=== PATIENT | male | born 1940 | race Caucasian/White ===

== ENCOUNTER → 2017-09-07 | Outpatient (CLI) | payer OTHER ==
[~2017-09-07] MED LIST: ALBU3IS INH; ALBU90OI INH; ASPI81EC PO; ATOR20 PO; AZIT500 PO; HYDACE5 PO; IBUP600 PO; IPRAOI INH; LISI5 PO; NAPR500 PO; OMEP20ER PO; OXYACE5T PO; OXYGEN; PRED20 PO; Prednisone20 MG PO; ROSU5 PO; Zithromax250 MG PO
[2017-09-07 13:03] LABS: Stool Occult Blood Guaiac 1 Neg (Neg); Stool Occult Blood Guaiac 2 Neg (Neg)
[2017-09-07 13:04] LABS: Stool Occult Blood Guaiac 3 Neg (Neg)
== END | disposition home or self-care (01) ==
LOC: LAB SHORT 09:00 → LAB 09:00 → LAB FUT 06-05 16:35
PROVIDERS: Nurse Practitioner Family
DX: Z12.11 Encounter for screening for malignant neoplasm of colon (principal); Z12.5 Encounter for screening for malignant neoplasm of prostate; I10 Essential (primary) hypertension; E78.5 Hyperlipidemia, unspecified
CPT/HCPCS: 82270

== ENCOUNTER → 2018-06-20 | Outpatient (CLI) | payer MEDICARE | END | disposition home or self-care (01) | LOC: PLD 10:05 → LAB SHORT 10:05 | DX: C44.519 Basal cell carcinoma of skin of other part of trunk (principal) | CPT/HCPCS: 88305 ==

== ENCOUNTER → 2020-11-24 | Outpatient (CLI) | payer MEDICARE | END | disposition home or self-care (01) | LOC: LAB SHORT 16:37 | DX: N39.0 Urinary tract infection, site not specified (principal) | CPT/HCPCS: 87077; 87086; 87186 ==

== ENCOUNTER 2022-04-12 07:42 | Inpatient (IN) | payer OTHER ==
[~2022-04-12] VITALS: Ht 180.3 cm; Wt 75.0 kg
[~2022-04-12 07:42] MED LIST changes: +HYDROCODONE-AC1 EA10 PO
[2022-04-12 08:42] LABS: BASOPHILS ABSOLUTE AUTO 0.01 K/mm3 (0.00-0.23); BASOPHILS PERCENT AUTO 0 % (0-2); EOSINOPHILS PERCENT AUTO 0 % (0-6); Hematocrit 41.3 % (37.0-53.0); Hemoglobin 14.3 g/dL (13.5-17.5); IMMATURE GRAN ABSOLUTE AUTO 0.02 K/mm3 (0.00-0.10); IMMATURE GRAN PERCENT AUTO 1 % (0-1); LYMPHOCYTES ABSOLUTE AUTO 0.59 K/mm3 (0.84-5.20); LYMPHOCYTES PERCENT AUTO 15 % (21-46); MONOCYTES ABSOLUTE AUTO 0.45 K/mm3 (0.16-1.47); MONOCYTES PERCENT AUTO 11 % (4-13); Mean Corpuscular HGB 32.5 pg (26.0-34.0); Mean Corpuscular HGB Conc 34.6 g/dL (31.5-36.5); Mean Corpuscular Volume 94 fL (80-100); Mean Platelet Volume 10.7 fL (9.1-12.4); NEUTROPHILS ABSOLUTE AUTO 2.93 K/mm3 (1.96-9.15); NEUTROPHILS PERCENT AUTO 73 % (41-73); Platelet Count 136 K/mm3 (150-400); RDW Standard Deviation 45.1 fL (35.1-46.3)
[2022-04-12 08:55] LABS: Albumin, Blood 2.9 g/dL (3.4-5.0); Albumin/Globulin Ratio 0.9 (0.8-1.8); Bilirubin, Total 0.5 mg/dL (0.1-1.0); Bun/Creatinine Ratio 23.5 (12.0-20.0); Creatinine, Blood 0.85 mg/dL (0.60-1.20); Globulin, Blood 3.3 g/dL (2.2-4.0); Potassium, Blood 4.2 mmol/L (3.5-5.5); Total Protein, Blood 6.2 g/dL (6.4-8.2)
[2022-04-12 09:22] LABS: Influenza A, PCR NEGATIVE (NEGATIVE); Influenza B, PCR NEGATIVE (NEGATIVE); Resp Syncytial Virus, PCR NEGATIVE (NEGATIVE)
[2022-04-12 09:28] LABS: SARS-Cov-2 (COVID-19) PCR, MMC POSITIVE (NEGATIVE)
--- NOTE | 2022-04-12 17:55 | NUR ---
Shift Summary New ED admit, received report from GENARO Abdullahi. Patient arrived to room by self, but shortly after, arrived too. A/Ox3, TYONEK. 4L O2. Patient reports increased weakness and stiff legs since COVID infection. 1p SBA with FWW and gaitbelt. Has poor safety awareness and definitely overestimates ability. SCD's in place. Bed alarm on. Continues to refuse remdesivir. Both and patient inquired about Ivermectin, informed to discuss with PCP/Hospitalist. Denies pain. Good appetite.
--- NOTE | 2022-04-12 18:45 | NUR ---
Muscle spasms Patient c/o muscle spasms after SCD's placed. T.O. received from Dr. Morales for 5mg flexeril PO q8h prn.
--- NOTE | 2022-04-13 04:12 | NUR ---
SHIFT SUMMARY PT C/O LEG SPASMS, ADMINISTERED PRN FLEXRIL WITH MINIMAL EFFECT. PT UP IN CHAIR WITH X1 ASSIST FWW D/T LEG SPASMS. PT STATES HE TAKES NORCO AT HOME, NEW ORDER FOR X1 NORCO TAB AT BEDTIME. ADMINISTERED WITH GOOD EFFECT. PT ON/OFF MENTATION, MORE CONFUSED THE NIGHT WENT ON. IMPULSIVE, NOT USING ALL LIGHT, CAMERA AND BED ALARM ON PT. NOTED PT TO BE URINATING FREQUENTLY WITH ONLY 50-100ML OUT. BLADDER SCAN SHOWED 596ML. STRAIGHT CATHED X1 PER PROTOCOL. AFTERWARDS PT URINATING WITHOUT ISSUES, VOIDING 300-500ML AT ONCE. PT ON 5LO2, BECOMING SOB WITH ACTIVITY, STRONG COUGH. BED ALARM ON. WILL CONTINUE TO MONITOR.
[2022-04-13 05:49] LABS: BASOPHILS ABSOLUTE AUTO 0.01 K/mm3 (0.00-0.23); BASOPHILS PERCENT AUTO 0 % (0-2); EOSINOPHILS PERCENT AUTO 0 % (0-6); Hematocrit 41.6 % (37.0-53.0); Hemoglobin 14.4 g/dL (13.5-17.5); IMMATURE GRAN ABSOLUTE AUTO 0.02 K/mm3 (0.00-0.10); IMMATURE GRAN PERCENT AUTO 1 % (0-1); LYMPHOCYTES PERCENT AUTO 18 % (21-46); MONOCYTES ABSOLUTE AUTO 0.43 K/mm3 (0.16-1.47); MONOCYTES PERCENT AUTO 11 % (4-13); Mean Corpuscular HGB 31.8 pg (26.0-34.0); Mean Corpuscular HGB Conc 34.6 g/dL (31.5-36.5); Mean Corpuscular Volume 92 fL (80-100); Mean Platelet Volume 10.7 fL (9.1-12.4); NEUTROPHILS ABSOLUTE AUTO 2.76 K/mm3 (1.96-9.15); NEUTROPHILS PERCENT AUTO 70 % (41-73); Platelet Count 134 K/mm3 (150-400); RDW Coefficient Variation 12.6 % (11.7-14.2); Red Blood Cell Count 4.53 M/mm3 (4.30-5.90); White Blood Cell Count 3.92 K/mm3 (4.00-11.30)
[2022-04-13 06:18] LABS: Albumin, Blood 2.8 g/dL (3.4-5.0); Albumin/Globulin Ratio 0.8 (0.8-1.8); Bilirubin, Total 0.5 mg/dL (0.1-1.0); Bun/Creatinine Ratio 22.8 (12.0-20.0); Calcium, Blood 8.7 mg/dL (8.5-10.1); Creatinine, Blood 0.79 mg/dL (0.60-1.20); Globulin, Blood 3.4 g/dL (2.2-4.0); Potassium, Blood 4.1 mmol/L (3.5-5.5); Total Protein, Blood 6.2 g/dL (6.4-8.2)
[2022-04-13 10:58] LABS: Base Excess Venous 4.1 mmol/L; Bicarbonate Venous 27.5 mmol/L (24.0-30.0); PCO2 Venous 39.7 mmHg (38-42); pH Blood Venous 7.46 (7.34-7.37)
--- NOTE | 2022-04-13 12:18 | NUR ---
Pt arrived from medical floor in bed. Put on AirVo by RT Kourtney. Pt is mumbling, speech is coherent, but he does have some confusion and flight of ideas. Mumbling to himself at times. Vital signs are stable. Rhonda states that the speech and mentation changes are new from yesterday.
[2022-04-13 14:36] LABS: Source, Urine Foley catheter
[2022-04-13 14:39] LABS: Appearance, Urine Clear (Clear); Bilirubin, Urine Neg (Neg); Blood, Urine 1+ (Neg); Glucose Qualitative, Urine Neg (Neg); Ketones, Urine 1+ (Neg); Leukocyte Esterase, Urine Neg (Neg); Nitrite, Urine Neg (Neg); Protein, Urine Neg (Neg); Urobilinogen, Urine NORM (Normal)
[2022-04-13 14:44] LABS: Color, Urine Pale Yellow (P-Yellow)
[2022-04-13 14:46] LABS: Bacteria Few /hpf; Squamous Epithelial Cells Rare /hpf (Few); White Blood Cells, Urine 0-2 /hpf (0-5)
--- NOTE | 2022-04-13 21:16 | NUR ---
Patient continually pulling off Airvo & bipap, while patient is oriented he is very delirious and doesn't remember pulling off the O2. Resident contacted and order for one time medication.
--- NOTE | 2022-04-14 05:01 | NUR ---
Patient continued to get more delirious and not redirectable as night continued. Resident called multiple times receiving the following once time doses: 10mg Atarax, 12.5mg Seroquel, 5mg Zyprexa, and 0.5mg Haldol - to no effect. Patient set off bed alarm and was disconnected from O2, tele etc, walking to the door and pulling on his garzon catheter. Orders for soft wrist restraints given and attending contacted. Patient was medicated with 1mg Ativan and 10mg Zyprexa.
[2022-04-14 06:51] LABS: BASOPHILS PERCENT AUTO 0 % (0-2); EOSINOPHILS PERCENT AUTO 0 % (0-6); Hematocrit 45.9 % (37.0-53.0); Hemoglobin 15.8 g/dL (13.5-17.5); IMMATURE GRAN ABSOLUTE AUTO 0.03 K/mm3 (0.00-0.10); IMMATURE GRAN PERCENT AUTO 1 % (0-1); LYMPHOCYTES ABSOLUTE AUTO 0.69 K/mm3 (0.84-5.20); LYMPHOCYTES PERCENT AUTO 11 % (21-46); MONOCYTES ABSOLUTE AUTO 0.45 K/mm3 (0.16-1.47); MONOCYTES PERCENT AUTO 7 % (4-13); Mean Corpuscular HGB 31.7 pg (26.0-34.0); Mean Corpuscular HGB Conc 34.4 g/dL (31.5-36.5); Mean Corpuscular Volume 92 fL (80-100); Mean Platelet Volume 10.5 fL (9.1-12.4); NEUTROPHILS ABSOLUTE AUTO 5.06 K/mm3 (1.96-9.15); NEUTROPHILS PERCENT AUTO 81 % (41-73); Platelet Count 167 K/mm3 (150-400); RDW Coefficient Variation 12.6 % (11.7-14.2); Red Blood Cell Count 4.98 M/mm3 (4.30-5.90); White Blood Cell Count 6.23 K/mm3 (4.00-11.30)
[2022-04-14 07:19] LABS: Albumin, Blood 3.1 g/dL (3.4-5.0); Albumin/Globulin Ratio 0.8 (0.8-1.8); Bilirubin, Total 0.7 mg/dL (0.1-1.0); Bun/Creatinine Ratio 20.5 (12.0-20.0); Calcium, Blood 8.7 mg/dL (8.5-10.1); Creatinine, Blood 0.83 mg/dL (0.60-1.20); Globulin, Blood 3.8 g/dL (2.2-4.0); Potassium, Blood 4.4 mmol/L (3.5-5.5); Total Protein, Blood 6.9 g/dL (6.4-8.2)
--- NOTE | 2022-04-14 11:09 | NUR ---
Pt is sitting up, alert at times, mostly talking in incoherent speech to himself. He is pulling at the restraints, attempting to remove oxygen tubing from his nose when loosened. Repositioned in bed to sitting upright position. He did take some spoonfuls of water but clearly stated, "No more". Occasionally states something coherently, but he is obviously very confused, delerious. Occasional dry cough. Declined food/drink. Attempted oral care, but he angrily declined. Cole catheter is patent, draining yellow urine. Friend Ruben was here for a visit. Call to Domitila to give her an update. She states she is home with Dolly.
--- NOTE | 2022-04-14 13:09 | NUR ---
Pt sitting upright with HOB elevated as high as possible. Spo2 holding 90% on 50% FiO2. Opens eyes to conversation. Mostly incoherent mumbling, but did give some clear answers. Pt was offered water, coffee, and food. He was pulling on restraints, attempting to pull oxygen tubing and Cole tubing. He was redirected, but grabbed at staff PPE gown. Oral care started, initially pt was compliant, but pt bit down on yankaur and began to yell. Remains very confused and difficult to redirect. He took a drink of water, but then yelled that he did not want any. He then appeared to be exhausted, closed his eyes and no longer agitated/fighting/threatening. Repositioned on his right side, pillows to elevated heels off of the bed. Vital signs taken. HR 90, wandering atrial pacer; RR 32-36 spo2 90-93%; B/p 109/70 (82). T 99.5
--- NOTE | 2022-04-14 13:32 | NUR ---
Call to Dr. Ashley, updated on pt condition.
--- NOTE | 2022-04-14 15:38 | NUR ---
Sleeping, he has self repositioned from right side lying to his back. RR 28/min, spo2 96% on AirVo. Breathing with his mouth wide open, head on pillow, HOB elevated 25 degrees. Pt was repositioned to left side-lying. He is difficult to arouse, and agitated when receiving care.
--- NOTE | 2022-04-14 17:54 | NUR ---
Pt awake spontaneously, set off bed alarm as he was attempting OOB. Wrist restraints prevented his exit. He was confused, said he was trying to get out of here. Did not know where he was. Speech is mostly slurred, except when he is angry, which is quickly and often, and then his yelling is more articulate. Otherwise speech is incomprehensible most of the time. He is sitting up in bed now, eating dinner by himself. Appears to have a good appetite. Respirations are unlabored at rest, and spo2 92% while on the AirVo. Heart rate 95 bpm.
--- NOTE | 2022-04-14 19:00 | NUR ---
Sitting up in bed, watching TV. Wrist restraints in place as he cannot remember to leave his nasal cannula in place, and also attempts to remove the IV while he was eating dinner, supervised by 2 staff members.
--- NOTE | 2022-04-15 07:09 | NUR ---
DURING THE FIRST HALF OF THIS SHIFT, PATIENT WAS ALERT TO SELF AND FOLLOWING DIRECTIONS, PULLING AT RESTRAINTS AND ATTEMPTING TO PULL AT GONZALEZ CATHETER TUBING AND AIRVO CANNULA. PATIENT COMPLAINED OF PAIN TO HIS BACK, WHICH IS CHRONIC FOR HIM. PRN NORCO ADMINISTERED, NOTED THIS DOSE IS LESS THAN PATIENT'S HOME DOSE. PATIENT WAS SPEAKING WITH HIS ON THE PHONE AND I WAS ABLE TO CONFIRM THAT MR GLASS HAS BEEN TAKING NARCOTICS FOR GREATER THAN 20 YEARS DUE TO INJURIES SUSTAINED IN THE PAST. MRS. GLASS SAID THAT HE TAKES 1-2 VICODIN (5/500) FOUR TIMES PER DAY. I RECEIVED AUTHORIZATION TO ADMINISTER A SECOND DOSE OF THE NORCO (5/325) IN THE 0200 HOUR TO TREAT PATIENT COMPLAINT OF BACK PAIN. CONCERN FOR POSSIBLE WITHDRAWAL FROM NARCOTICS WITH THE DIFFERENCE IN HOSPITAL DOSE COMPARED TO HOME DOSE. WITH MY 0200 ASSESSMENT, MR. GLASS'S MENTATION HAD IMPROVED AND HIS SPEECH WAS MUCH CLEARER. HE ASKED TO HAVE THE RESTRAINTS REMOVED AND I EXPLAINED TO HIM WHY THEY WERE IN PLACE. HE SAID HE REMEMBERED THE RESTRAINTS BEING PLACED ON HIM AND THAT IT MADE HIM ANGRY. I EXPLAINED OUR CONCERNS FOR HIS RESPIRATORY STATUS AND HIS SAFETY, HE UNDERSTOOD. I SHARED THE CRITERIA FOR REMOVING THE RESTRAINTS AND THAT WE CAN LOOSEN THE RESTRAINTS IN 2 HOURS IF HE DOES NOT FIGHT AGAINST THEM AND DOESN'T PULL AT ANY LINE AND CORDS. HE WAS AGREEABLE TO THAT. THE RESTRAINTS WERE LOOSENED AT 0400 [address] MR. GLASS HAS BEEN COMPLIANT WITH NOT PULLING AT ANY OF HIS LINES OR TUBES AND/OR ATTEMPTING TO GET OUT OF BED UNASSSISTED. WILL CONTINUE TO MONITOR.
[2022-04-15 09:06] LABS: BASOPHILS PERCENT AUTO 0 % (0-2); EOSINOPHILS PERCENT AUTO 0 % (0-6); Hemoglobin 16.3 g/dL (13.5-17.5); IMMATURE GRAN ABSOLUTE AUTO 0.04 K/mm3 (0.00-0.10); IMMATURE GRAN PERCENT AUTO 1 % (0-1); LYMPHOCYTES ABSOLUTE AUTO 0.53 K/mm3 (0.84-5.20); LYMPHOCYTES PERCENT AUTO 13 % (21-46); MONOCYTES ABSOLUTE AUTO 0.35 K/mm3 (0.16-1.47); MONOCYTES PERCENT AUTO 9 % (4-13); Mean Corpuscular HGB 31.5 pg (26.0-34.0); Mean Corpuscular Volume 93 fL (80-100); Mean Platelet Volume 10.8 fL (9.1-12.4); NEUTROPHILS ABSOLUTE AUTO 3.07 K/mm3 (1.96-9.15); NEUTROPHILS PERCENT AUTO 77 % (41-73); Platelet Count 172 K/mm3 (150-400); RDW Coefficient Variation 12.6 % (11.7-14.2); RDW Standard Deviation 43.5 fL (35.1-46.3); Red Blood Cell Count 5.18 M/mm3 (4.30-5.90); White Blood Cell Count 3.99 K/mm3 (4.00-11.30)
[2022-04-15 09:19] LABS: Albumin, Blood 2.7 g/dL (3.4-5.0); Albumin/Globulin Ratio 0.7 (0.8-1.8); Bilirubin, Total 0.6 mg/dL (0.1-1.0); Bun/Creatinine Ratio 25.8 (12.0-20.0); Calcium, Blood 8.4 mg/dL (8.5-10.1); Creatinine, Blood 0.78 mg/dL (0.60-1.20); Globulin, Blood 4.1 g/dL (2.2-4.0); Potassium, Blood 4.1 mmol/L (3.5-5.5); Total Protein, Blood 6.8 g/dL (6.4-8.2)
--- NOTE | 2022-04-15 10:24 | NUR ---
SHIFT ASSESSMENT ASSUMED CARE OF PT @ 0700. PT ALERT AND ORIENTED, FOLLOWING ALL COMMANDS, NOT INTERFERING WITH CARE. BL WRIST RESTRAINTS REMOVED @ 0800. PT ON HFNC 55L/45% c O2 SATS >90%. NSR ON THE RESIDENT CARE TECHNICIAN. GONZALEZ CATH DRAINING YELLOW URINE. NO BM THIS SHIFT. CALL LIGHT IN REACH, WILL MONITOR CLOSELY.
--- NOTE | 2022-04-15 17:49 | NUR ---
SHIFT SUMMARY PT REMAINS ALERT AND ORIENTED, FOLLOWING COMMANDS.
--- NOTE | 2022-04-15 18:03 | NUR ---
SHIFT SUMMARY PT REMAINS ALERT AND ORIENTED TO PERSON, PLACE, AND YEAR. FOLLOWING COMMANDS, KOREY, REMAINS OUT OF WRIST RESTRAINTS. TOLERATING FOOD AND DRINK WELL. NO CHANGES TO HI-FLOW NC SETTINGS c SATS >90%. BP STABLE, NSR ON LEAD ASSISTANT MANAGER. GONZALEZ CATH PATENT, DRAINING TO GRAVITY. NO BM THIS SHIFT. NO OTHER ACUTE CHANGES. CALL LIGHT IN REACH. WILL REPORT TO ONCOMING NURSE.
[2022-04-16 06:16] LABS: BASOPHILS ABSOLUTE AUTO 0.01 K/mm3 (0.00-0.23); BASOPHILS PERCENT AUTO 0 % (0-2); EOSINOPHILS PERCENT AUTO 0 % (0-6); Hematocrit 46.7 % (37.0-53.0); IMMATURE GRAN ABSOLUTE AUTO 0.04 K/mm3 (0.00-0.10); IMMATURE GRAN PERCENT AUTO 1 % (0-1); LYMPHOCYTES ABSOLUTE AUTO 0.78 K/mm3 (0.84-5.20); LYMPHOCYTES PERCENT AUTO 12 % (21-46); MONOCYTES ABSOLUTE AUTO 0.68 K/mm3 (0.16-1.47); MONOCYTES PERCENT AUTO 11 % (4-13); Mean Corpuscular HGB 31.6 pg (26.0-34.0); Mean Corpuscular HGB Conc 34.3 g/dL (31.5-36.5); Mean Corpuscular Volume 92 fL (80-100); NEUTROPHILS PERCENT AUTO 76 % (41-73); Platelet Count 193 K/mm3 (150-400); RDW Coefficient Variation 12.7 % (11.7-14.2); RDW Standard Deviation 43.1 fL (35.1-46.3); Red Blood Cell Count 5.07 M/mm3 (4.30-5.90); White Blood Cell Count 6.31 K/mm3 (4.00-11.30)
[2022-04-16 06:33] LABS: Bun/Creatinine Ratio 32.9 (12.0-20.0); Calcium, Blood 8.7 mg/dL (8.5-10.1); Creatinine, Blood 0.79 mg/dL (0.60-1.20); Potassium, Blood 4.4 mmol/L (3.5-5.5)
--- NOTE | 2022-04-16 07:23 | NUR ---
NO ACUTE VENTS OVERNIGHT LAST NIGHT. PATIENT REMAINS DEPENDENT UPON AIRVO HEATED HI-FLOW NASAL CANNULA: 55 LPM AT 60% FiO2. MR. GLASS STATES THAT HE FEELS THAT HIS BREATHING IS LESS LABORED BUT THAT HE DOES TIRE EASILY. HE HAS A HISTORY OF CHRONIC PAIN AND WAS REPORTING PAIN OF 8-9/10. HE HAS NOT BEEN ON HIS HOME PAIN MEDICATION REGIMEN SINCE ADMISSION. I CALLED AND RECEIVED AN ORDER FOR NORCO QID PER PATIENT'S HOME REGIMEN. PER PHARMD, HIS HOME DOSE OF VICODIN 5/500 IS NOT IN THE FORMULARY HERE. SO THE NORCO 5/325 WAS ORDERED. THIS MORNING, MR GLASS REPORTED BEING MUCH MORE COMFORTABLE THAN PREVIOUS DAY.
--- NOTE | 2022-04-16 16:21 | NUR ---
Shift Summary Pt alert, oriented. Pt resting in bed, up with two person assist to bsc. Pt reports chronic back and ble pain, medciated per orders. Pt sob with activity, spo2 >90% on airvo 55l 60% fio2 titrated down to 50l 60% fio2, breathing even and unlabored while at rest, labored while active. Pt c/o congestion, notified Dr Teo MD to place orders. Pt denies chest pain, nausea, dizziness and numb/tingling. Tele sinus, bp stable; no edema noted. Pt has garzon catheter in place, cath care completed. Other vss. No other acute changes noted. Will continue to monitor unitl report given to oncoming rn.
--- NOTE | 2022-04-16 16:45 | NUR ---
Shift Summary Pt alert, oriented; unsure of date/time. Forgetful at times. Pt reports pain to back and neck, medicated per orders. Pt sob with even minimal activity, desaturates quickly to 77-82%, take a few minutes to full recover. Pt started this am on BIPAP 10/5 at 60%, transitiioned to Airvo and is currently on 40l and 75%, breahitng is even but labored at times. Pt denies chest pain, nausea, dizziness and numb/tingling. Tele sinus/sinus tach, bp stable, trace edema noted to ble. Pt recieving iv antibiotics. Pt febrile this afternoon 101.5 Tmax, notified Dr Ashley, new orders for blood cultures. Other vss. No other acute changes noted. Will continue to monitor unitl report given to oncoming rn.
[2022-04-17 05:21] LABS: BASOPHILS ABSOLUTE AUTO 0.01 K/mm3 (0.00-0.23); BASOPHILS PERCENT AUTO 0 % (0-2); EOSINOPHILS PERCENT AUTO 0 % (0-6); Hematocrit 47.2 % (37.0-53.0); Hemoglobin 16.3 g/dL (13.5-17.5); IMMATURE GRAN ABSOLUTE AUTO 0.06 K/mm3 (0.00-0.10); IMMATURE GRAN PERCENT AUTO 1 % (0-1); LYMPHOCYTES ABSOLUTE AUTO 0.86 K/mm3 (0.84-5.20); LYMPHOCYTES PERCENT AUTO 11 % (21-46); MONOCYTES ABSOLUTE AUTO 0.74 K/mm3 (0.16-1.47); MONOCYTES PERCENT AUTO 10 % (4-13); Mean Corpuscular HGB 31.7 pg (26.0-34.0); Mean Corpuscular HGB Conc 34.5 g/dL (31.5-36.5); Mean Corpuscular Volume 92 fL (80-100); Mean Platelet Volume 10.8 fL (9.1-12.4); NEUTROPHILS ABSOLUTE AUTO 5.88 K/mm3 (1.96-9.15); NEUTROPHILS PERCENT AUTO 78 % (41-73); Platelet Count 224 K/mm3 (150-400); RDW Coefficient Variation 12.5 % (11.7-14.2); RDW Standard Deviation 42.6 fL (35.1-46.3); Red Blood Cell Count 5.15 M/mm3 (4.30-5.90); White Blood Cell Count 7.55 K/mm3 (4.00-11.30)
[2022-04-17 05:48] LABS: Albumin, Blood 2.8 g/dL (3.4-5.0); Albumin/Globulin Ratio 0.7 (0.8-1.8); Bilirubin, Total 0.8 mg/dL (0.1-1.0); Bun/Creatinine Ratio 34.5 (12.0-20.0); Calcium, Blood 8.8 mg/dL (8.5-10.1); Creatinine, Blood 0.84 mg/dL (0.60-1.20); Globulin, Blood 3.8 g/dL (2.2-4.0); Potassium, Blood 4.4 mmol/L (3.5-5.5); Total Protein, Blood 6.6 g/dL (6.4-8.2)
--- NOTE | 2022-04-17 06:22 | NUR ---
NO ACUTE EVENTS OVERNIGHT. PT ON AIRVO 50L AT 50% TOELRATING WELL.
--- NOTE | 2022-04-17 09:56 | NUR ---
AM NOTE: PATIENT ALERT AND ORIENTED. AT TIMES HARD TO UNDERSTAND SPEECH. DENIES N/T. PERRLA. BILATERAL FORKLIFT TRUCK MECHANIC STRENGTH AND MOVEMENTS. TELE SHOWING SR WITH HR 70-80'S. DENIES CHEST PAIN/PRESSURE/PALPITATIONS. BP STABLE. NO SIGNS OF EDEMA. PPP. ON HIGH FLOW HEATED NC AT 45L AND 50% FIO2, SATING LOW-MID 90'S. SOB IMPROVING. LUNGS SOUNDING COARSE AND DIM. DENIES ABDOMINAL PAIN/NAUSEA. EATING WNL. GONZALEZ CATH IN PLACE DRAINING YELLOW URINE TO GRAVITY. CATH CARE COMPLETED THIS AM. PATIENT DENIES BED BATH THIS MORINING. COMPLAINS OF CHRONIC BACK PAIN 11/27. MEDICATED PER EMAR. PATIENT SLEEPING AT THIS TIME. CALL LIGHT IN REACH. WILL CONTINUE TO MONITOR.
--- NOTE | 2022-04-17 11:32 | NUR ---
CHANI CALLED AND UPDATED WITH PATIENT PERMISSION. 1200 VITALS STABLE. DENIES NEEDS. CALL LIGHT IN REACH. WILL CONTINUE TO MONITOR.
[2022-04-17 13:32] LABS: Albumin, Blood 2.9 g/dL (3.4-5.0); Albumin/Globulin Ratio 0.8 (0.8-1.8); Bilirubin, Direct 0.2 mg/dL (0.0-0.3); Bilirubin, Indirect 0.5 mg/dL (0.1-0.7); Bilirubin, Total 0.7 mg/dL (0.1-1.0); Globulin, Blood 3.8 g/dL (2.2-4.0); Total Protein, Blood 6.7 g/dL (6.4-8.2)
--- NOTE | 2022-04-17 18:17 | NUR ---
SHIFT SUMMARY: NO ACUTE CHANGES, SEE PREVIOUS NOTES FOR UPDATES. PATIENT WAKES ONCE FROM NAP AND VERY CONFUSED. STATES HE HAD A HORRIBLE DREAM AND REORIENTED WITHIN A FEW MIN. BED ALARM PLACED FOR SAFETY. REMAINS ON HIGH FLOW HEATED NC AT 45L AND 50% SATING MID 90'S. TELE CONTINUES TO SHOW SR WITH HR 70-80'S. DENIES CHEST PAIN/PRESSURE. VITAL SIGNS STABLE THROUGHOUT SHIFT. GONZALEZ CATH REMAINS IN PLACE DRAINING YELLOW URINE TO GRAVITY. UP TO BSC WITH 1-2 PERSON ASSIT AND FWW. X1 BOWEL MOVEMENT. CALL LIGHT IN REACH. WILL CONTINUE TO MONITOR AND REPORT OFF TO ONCOMING RN.
--- NOTE | 2022-04-18 06:31 | NUR ---
SHIFT SUMMARY: NEURO: PATIENT SLEEPING BETWEEN CARE OVERNIGHT. ORIENTED X4. FOLLOWING COMMANDS. PATIENT REFUSING TURNS AND REPOSITIONING. HE STATES "IT DOESN'T MATTER, EVERYTHING STILL HURTS SO JUST LEAVE ME BE" CARDIAC: SR/SB. BP WNL. AFEBRILE. RESP: AIRVO OVERNIGHT. 45L 50% O2. TOLERATING WELL. COMPLAINS OF CONGESTION. GI: NO BM THIS SHIFT. : GONZALEZ IN PLACE DRAINING TO GRAVITY. 425 UOP OVERNIGHT. SKIN: PALE AND DRY. INTACT OTHER: PATIENT STATES HIS PRN PAIN REGIMENT IS NOT ADEQUATE FOR PAIN RELIEF.
--- NOTE | 2022-04-18 17:03 | NUR ---
SHIFT SUMMARY PT HAS BEEN RESTING QUIETLY IN BED SINCE ARRIVAL. RIGHT RADIAL SITE IS SOFT, NON-TENDER, NO HEMATOMA NOTED. DISTAL PULSES ARE PRESENT AND EQUAL BILATERALLY. PT HAS A HISTORY OF PERIPHERAL NEUROPATHY. PT DENIED ANY C/O PAIN OR DISCOMFORT. PT HAS CALLED APPROPRIATELY FOR ASSISTANCE. VITAL SIGNS STABLE, NO ACUTE CHANGE IN CONDITION.
--- NOTE | 2022-04-18 17:14 | NUR ---
SHIFT SUMMARY PT HAS BEEN RESTING IN ROOM, THEY WORKED WITH THERAPIES AND SPENT A SHORT AMOUNT OF TIME UP IN THE CHAIR. THEY HAVE BEEN PLEASANT AND EXPRESSED A SENSE OF HUMOR WITH THIS RN. PT IS VERY HARD OF HEARING AND WAS UNABLE TO UNDERSTAND UNLESS THIS RN WAS WITHIN A FEW FEET AND SPOKE VERY LOUDLY. PT WAS COOPERATIVE WITH ALL CARES AND EXPRESSED A DESIRE TO EXPEDITE DISCHARGE IF POSSIBLE.
--- NOTE | 2022-04-19 05:09 | NUR ---
Assumed care of pt at 1900. A/Ox4 and cooperative with care. [place]. Denies any pain, CP/pressure. C/o chronic back pain, medicated per emar with good relief. Patient was switched over to NC this shift at 3L, titrated down to 2.5L and is saturating above 90%. SINGER noted. SR on tele 80's. BP stable. Cole cath draining to gravity yellow/clear urine. Will report to dayshift GENARO.
[2022-04-19] MEDS ORDERED: MELATONIN5 M1 PO (11:20)
[2022-04-19] MEDS ORDERED: IPRAT-ALBUT 0.5-3 ML INH (11:20)
[2022-04-19] MEDS ORDERED: PRED20 PO (11:22)
--- NOTE | 2022-04-19 14:39 | NUR ---
DISCHARGE SUMMARY PT WAS TRANSPORTED BY WHEELCHAIR TO PERSONAL VEHICLE. ALL PERSONAL BELONGINGS AND DISCHARGE INSTRUCTIONS WERE IN THE POSSESSION OF THE PT'S SPOUSE AT THE TIME OF DISCHARGE. ALL QUESTIONS AND CONCERNS WERE ADDRESSED PRIOR TO DISCHARGE. PT STATED AND UNDERSTANDING OF INSTRUCTIONS.
== END 2022-04-19 14:03 | disposition home or self-care (01) | DRG 177 ==
LOC: ER 07:42 → PCU 11:33 → MEDS 11:33 → PCU 04-13 12:08
PROVIDERS: Family Medicine; Physician Assistant; ADMIT Internal Medicine
PROC: 8E0ZXY6 Isolation (ICD-10-PCS; principal; 2022-04-12)
PROC: 3E0333Z Introduction of Anti-inflammatory into Peripheral Vein, Percutaneous Approach (ICD-10-PCS; 2022-04-12)
PROC: 5A0935A Assistance with Respiratory Ventilation, Less than 24 Consecutive Hours, High Flow/Velocity Cannula (ICD-10-PCS; 2022-04-12)
PROC: XW0DXM6 Introduction of Baricitinib into Mouth and Pharynx, External Approach, New Technology Group 6 (ICD-10-PCS; 2022-04-14)
PROC: XW033H5 Introduction of Tocilizumab into Peripheral Vein, Percutaneous Approach, New Technology Group 5 (ICD-10-PCS; 2022-04-14)
DX: U07.1 COVID-19 (principal); J12.82 Pneumonia due to coronavirus disease 2019; J96.01 Acute respiratory failure with hypoxia; J44.1 Chronic obstructive pulmonary disease with (acute) exacerbation; J44.0 Chronic obstructive pulmonary disease with (acute) lower respiratory infection; F05 Delirium due to known physiological condition; N40.0 Benign prostatic hyperplasia without lower urinary tract symptoms; M19.90 Unspecified osteoarthritis, unspecified site; G89.29 Other chronic pain; I10 Essential (primary) hypertension; Z53.29 Procedure and treatment not carried out because of patient's decision for other reasons; M54.9 Dorsalgia, unspecified; Z79.899 Other long term (current) drug therapy; E78.5 Hyperlipidemia, unspecified; Z66 Do not resuscitate; Z96.653 Presence of artificial knee joint, bilateral; Z96.641 Presence of right artificial hip joint; Z28.21 Immunization not carried out because of patient refusal
CPT/HCPCS: 0241U; 36415; 51703; 71045; 80048; 80053; 80076; 81001; 82803; 83880; 84145; 84484; 85025; 86141; 93005; 93010; 94640; 94660; 94664; 94760; 94761; 94762; 96374; 97110; 97162; 97166; 97530; 97535; 99285-25; A9270; C9399; J0248; J1100; J1630; J1650; J2060; J7042; J7050

== ENCOUNTER → 2022-12-26 | Outpatient (CLI) | payer OTHER ==
[~2022-12-26] MED LIST changes: +IPRAT-ALBUT 0.5-3 ML INH; +MELATONIN5 M1 PO
[2022-12-26 12:09] LABS: Hematocrit 40.8 % (37.0-53.0); Hemoglobin 13.6 g/dL (13.5-17.5); Mean Corpuscular HGB 32.1 pg (26.0-34.0); Mean Corpuscular HGB Conc 33.3 g/dL (31.5-36.5); Mean Corpuscular Volume 96 fL (80-100); Mean Platelet Volume 10.3 fL (9.1-12.4); Platelet Count 150 K/mm3 (150-400); RDW Coefficient Variation 12.9 % (11.7-14.2); RDW Standard Deviation 45.9 fL (35.1-46.3); Red Blood Cell Count 4.24 M/mm3 (4.30-5.90); White Blood Cell Count 5.22 K/mm3 (4.00-11.30)
[2022-12-26 13:00] LABS: BAND PERCENT MAN 12 % (0-8); BASOPHILS PERCENT MAN 0 % (0-2); EOSINOPHILS PERCENT MAN 4 % (0-6); LYMPHOCYTES ABSOLUTE MAN 1.56 K/mm3 (0.84-5.20); LYMPHOCYTES PERCENT MAN 30 % (21-46); MONOCYTES PERCENT MAN 2 % (4-13); NEUTROPHILS ABSOLUTE MAN 3.34 K/mm3 (1.96-9.15); SEG NEUTROPHILS PERCENT MAN 52 % (41-73); TOTAL CELLS COUNTED 100
== END | disposition home or self-care (01) ==
LOC: LAB SHORT 12:03 → LAB 12:03
PROVIDERS: Family Medicine
DX: R04.2 Hemoptysis (principal)
CPT/HCPCS: 85025

== ENCOUNTER → 2023-06-09 | Outpatient (CLI) | payer OTHER ==
[2023-06-15 16:56] LABS: 6-ACETYLMORPHINE, URN, QUANT <10 ng/mL; CODEINE, URN, QUANT <20 ng/mL; HYDROCODONE, URN, QUANT 2134 ng/mL; HYDROMORPHONE, URN, QUANT 88 ng/mL; MORPHINE, URN, QUANT <20 ng/mL; NORHYDROCODONE, URN, QUANT 3926 ng/mL; NOROXYCODONE, URN, QUANT <20 ng/mL; NOROXYMORPHONE, URN, QUANT <20 ng/mL; OXYCODONE, URN, QUANT <20 ng/mL; OXYMORPHONE, URN, QUANT <20 ng/mL
== END ==
LOC: LAB 14:30 → LAB SHORT 14:30
PROVIDERS: Family Medicine
DX: Z51.81 Encounter for therapeutic drug level monitoring (principal); Z79.899 Other long term (current) drug therapy
CPT/HCPCS: G0480

== ENCOUNTER → 2024-12-08 | Outpatient (CLI) | payer OTHER | LOC: LAB 16:15 → LAB SHORT 16:15 | DX: N39.0 Urinary tract infection, site not specified (principal) | CPT/HCPCS: 87077; 87086; 87186 ==